=== PATIENT | female | born 1940 | race Caucasian/White ===

== ENCOUNTER 2017-09-23 06:47 | Day surgery (SDC) | payer OTHER ==
[~2017-09-23] VITALS: Ht 149.9 cm; Wt 74.8 kg
[~2017-09-23 06:47] MED LIST: Aspirin EC81 MG; Vitamin C100 M1 PO
[2017-09-23] MEDS ORDERED: LOSA50 (06:58)
[2017-09-23] MEDS ORDERED: ALEN70 (06:58)
[2017-09-23] MEDS ORDERED: PRAV20 PO (06:58)
[2017-09-23] MEDS ORDERED: ALLER-FEX180 MG (06:59)
[2017-09-23] MEDS ORDERED: CALCIUM + VIT1 EACH (06:59)
== END 2017-09-23 08:29 | disposition home or self-care (01) ==
LOC: ORSCSDS 06:47
PROVIDERS: Ophthalmology
PROC: 08RK3JZ Replacement of Left Lens with Synthetic Substitute, Percutaneous Approach (ICD-10-PCS; principal; 2017-09-23 08:00)
DX: H25.12 Age-related nuclear cataract, left eye (principal); K21.9 Gastro-esophageal reflux disease without esophagitis; I10 Essential (primary) hypertension; E78.00 Pure hypercholesterolemia, unspecified; E66.9 Obesity, unspecified; Z68.33 Body mass index [BMI] 33.0-33.9, adult; Z87.891 Personal history of nicotine dependence; Z79.899 Other long term (current) drug therapy
CPT/HCPCS: J2250; J3301; J7040; V2632

== ENCOUNTER → 2018-05-14 | Outpatient (CLI) | payer OTHER ==
[~2018-05-14] MED LIST changes: +ALEN70; +ALLER-FEX180 MG; +CALCIUM + VIT1 EACH; +LOSA50; +PRAV20 PO
== END | disposition home or self-care (01) ==
LOC: LAB SHORT 10:59 → LAB EV 10:59
DX: L30.4 Erythema intertrigo (principal)
CPT/HCPCS: 87070; 87205

== ENCOUNTER → 2022-12-04 | Outpatient (CLI) | payer OTHER | LOC: LAB 09:40 → LAB SHORT 09:40 | DX: R30.0 Dysuria (principal) | CPT/HCPCS: 87077; 87086; 87186 ==

== ENCOUNTER → 2022-12-25 | Outpatient (CLI) | payer OTHER ==
[2022-12-30 13:12] LABS: HPV 16 Negative (Negative); HPV 18 Negative (Negative); HPV OTHER HR TYPES Negative (Negative)
== END ==
LOC: LAB SHORT 16:25 → LAB 16:25
PROVIDERS: Obstetrics & Gynecology
DX: Z01.419 Encounter for gynecological examination (general) (routine) without abnormal findings (principal)
CPT/HCPCS: 87624; G0145

== ENCOUNTER → 2023-05-13 | Outpatient (CLI) | payer OTHER ==
[~2023-05-13] MED LIST changes: +ALEN70 PO; +APHEN325 MG PO; +ASPI81CH PO; +IBUP600 PO; +LOSA50 PO; +ONDA4 PO; +OXYC5 PO; +PRESERVISION A1 EAC2 PO
== END ==
LOC: LAB SHORT 11:55 → LAB 11:55
DX: L08.9 Local infection of the skin and subcutaneous tissue, unspecified (principal)
CPT/HCPCS: 87070; 87077; 87186; 87205